=== PATIENT | female | born 1935 | race Two or more races ===

== ENCOUNTER 2016-12-26 14:26 | Emergency (ER) | payer MEDICARE ==
[~2016-12-26] VITALS: Ht 162.6 cm; Wt 46.5 kg
[~2016-12-26 14:26] MED LIST: APIX5TAB PO; LEVO100T4 PO; OCUVTAB PO; TAB-TAB PO
[2016-12-26 14:34] VITALS: BP 146/79; PULSE 78; RESP 15; TEMP 98.2; O2SAT 98
[2016-12-26] MEDS ORDERED: MULT1TAB84 PO (14:38)
[2016-12-26] MEDS ORDERED: LEVO.075 PO (14:38)
[2016-12-26] MEDS ORDERED: AMLO5TAB2 PO (14:38)
[2016-12-26] MEDS ORDERED: COQ-100C2 (14:38)
[2016-12-26 14:50] VITALS: BP_SYST 136; BP_SYST 141; BP_DIAS 58; BP_DIAS 62; RESP 15; O2SAT 98
[2016-12-26] MEDS ORDERED: SODIUM CHLORIDE 0.9% FLUSH 5 ML FLUSH IVF PRN (15:00)
[2016-12-26 15:10] LABS: AUTOMATED NEUTROPHIL # 4.9 TH/MM3 (1.8-7.7); BASOPHIL % 0.3 % (0.0-2.0); EOSINOPHIL % 0.3 % (0.0-4.0); HEMATOCRIT 37.3 % (35.0-46.0); HEMO FLAGS DIFF FINAL; LYMPH % 13.9 % (9.0-44.0); LYMPHOCYTE # 0.9 TH/MM3 (1.0-4.8); MEAN CELL VOLUME 86.9 FL (80.0-100.0); MEAN CORPUSCULAR HEMOGLOBIN 29.5 PG (27.0-34.0); MONO % 12.8 % (0.0-8.0); NEUT % 72.7 % (16.0-70.0); PLATELET COUNT 189 TH/MM3 (150-450); RED BLOOD COUNT 4.29 MIL/MM3 (4.00-5.30); RED CELL DISTRIBUTION WIDTH 13.2 % (11.6-17.2); WHITE BLOOD COUNT 6.6 TH/MM3 (4.0-11.0)
--- NOTE | 2016-12-26 15:22 | PD ---
HPI Chief Complaint: Chest Pain Time Seen by Provider: 14:50 Travel History International Travel<30 days: No Contact w/Intl Traveler<30days: No Traveled to known affect area: No History of Present Illness HPI This is a 81-year-old female who has a history of atrial fibrillation who presents to the emergency department with 2 days of right sided chest pain, intermittent, sharp, worse with laying flat and worse with deep breaths, feeling like a stabbing pain. She says the pain has been constant since last night. She said it was the worst last evening and has subsided but has not gone away completely so she came to the emergency department. She does feel short of breath and she says it really hurts when she takes a deep breath. She denies any associated nausea or diaphoresis although she did have some chills overnight. She did notice that she had a greasy stool yesterday. She follows with Dr. White for her atrial fibrillation. She doesn't a history of hypertension. She denies smoking. PFSH Past Medical History Hx Anticoagulant Therapy: Yes (XARELTO) Arthritis: Yes (HANDS) Asthma: No Atrial Fibrillation: Yes Autoimmune Disease: No Heart Rhythm Problems: Yes (NEW AFIB/RVR) Cancer: No Cardiovascular Problems: Yes (A-FIB) High Cholesterol: Yes Chemotherapy: No Chest Pain: Yes Congestive Heart Failure: No Cerebrovascular Accident: No Diabetes: No Diminished Hearing: No Endocrine: Yes Gastrointestinal Disorders: Yes (CHRONIC CONSTIPATION.) GERD: No Glaucoma: No Genitourinary: Yes Hepatitis: No Hiatal Hernia: No Hypertension: Yes Immune Disorder: No Implanted Vascular Access Dvce: No Musculoskeletal: Yes Neurologic: Yes Psychiatric: No Reproductive: No Respiratory: No Immunizations Current: Yes Renal Failure: No Thyroid Disease: Yes Ulcer: No ?: Not Menopausal: Yes : 1 Para: 2 Past Surgical History Abdominal Surgery: No Appendectomy: Yes Cardiac Surgery: No Ear Surgery: No Endocrine Surgery: Yes Eye Surgery: Yes (LASER) Genitourinary Surgery: Yes (BLADDER) Gynecologic Surgery: Yes (HYSTERECTOMY) Hysterectomy: Yes Oral Surgery: No Pacemaker: No Thoracic Surgery: No Tonsillectomy: Yes Other Surgery: Yes Social History Alcohol Use: Yes (1/2 GLASS WINE EVERY OTHER DAY) Tobacco Use: No Substance Use: No Allergies-Medications (Allergen,Severity, Reaction): Coded Allergies: Hydrochlorothiazide (Verified Allergy, Severe, 12/26/16) Hydrocodone (Verified Allergy, Severe, 12/26/16) Pravastatin (Verified Allergy, Severe, 12/26/16) Cardizem (Verified Allergy, Intermediate, 12/26/16) Xarelto (Verified Allergy, Unknown, 12/26/16) Reported Meds & Prescriptions Reported Meds & Active Scripts Active Reported Coq-10 (Coenzyme Q10 (Ubidecarenone)) 100 Mg Cap Amlodipine (Amlodipine Besylate) 5 Mg Tab 5 Mg PO DAILY Multivitamin Adults (Multiple Vitamins W/ Minerals) 1 Tab 1 Tab PO DAILY Synthroid (Levothyroxine Sodium) 75 Mcg Tab 75 Mcg PO DAILY Eliquis (Apixaban) 5 Mg Tab 5 Mg PO BID Review of Systems Except as stated in HPI: all other systems reviewed are Neg Physical Exam Narrative GENERAL:Well appearing, no acute distress SKIN: Warm and dry. HEAD: Atraumatic. Normocephalic. EYES: Pupils equal and round. No injection or drainage. ENT: Moist mucous membranes NECK: Trachea midline. CARDIOVASCULAR: Regular rate and rhythm. No murmur appreciated. RESPIRATORY: Clear to auscultation. Breath sounds equal bilaterally. GASTROINTESTINAL: Abdomen soft, tender to palpation in the right upper quadrant with no rebound or guarding. MUSCULOSKELETAL: No obvious deformities. NEUROLOGICAL: Awake and alert. No obvious cranial nerve deficits. Moving all extremities. PSYCHIATRIC: Appropriate mood and affect; insight and judgment normal. Data Data Last Documented VS Vital Signs Date Time Temp Pulse Resp B/P Pulse Ox O2 Delivery O2 Flow Rate FiO2 12/26/16 15:47 68 15 136/54 99 Room Air 12/26/16 14:34 98.2 Orders Electrocardiogram (12/26/16 14:50) Complete Blood Count With Diff (12/26/16 14:50) Comprehensive Metabolic Panel (12/26/16 14:50) Prothrombin Time / Inr (Pt) (12/26/16 14:50) Act Partial Throm Time (Ptt) (12/26/16 14:50) Troponin I (12/26/16 14:50) Chest, Single Ap (12/26/16 14:50) Ecg Monitoring (12/26/16 14:50) Bilateral Bp Monitoring (12/26/16 14:50) Iv Access Insert/Monitor (12/26/16 14:50) Oximetry (12/26/16 14:50) Oxygen Administration (12/26/16 14:50) Sodium Chloride 0.9% Flush (Ns Flush) (12/26/16 15:00) Ed Poc Ultrasound (12/26/16 14:50) D-Dimer (12/26/16 15:04) Labs Laboratory Tests Test 12/26/16 15:00 White Blood Count 6.6 TH/MM3 Red Blood Count 4.29 MIL/MM3 Hemoglobin 12.7 GM/DL Hematocrit 37.3 % Mean Corpuscular Volume 86.9 FL Mean Corpuscular Hemoglobin 29.5 PG Mean Corpuscular Hemoglobin 34.0 % Concent Red Cell Distribution Width 13.2 % Platelet Count 189 TH/MM3 Mean Platelet Volume 8.3 FL Neutrophils (%) (Auto) 72.7 % Lymphocytes (%) (Auto) 13.9 % Monocytes (%) (Auto) 12.8 % Eosinophils (%) (Auto) 0.3 % Basophils (%) (Auto) 0.3 % Neutrophils # (Auto) 4.9 TH/MM3 Lymphocytes # (Auto) 0.9 TH/MM3 Monocytes # (Auto) 0.8 TH/MM3 Eosinophils # (Auto) 0.0 TH/MM3 Basophils # (Auto) 0.0 TH/MM3 CBC Comment DIFF FINAL Differential Comment Prothrombin Time 11.2 SEC Prothromb Time International 1.0 RATIO Ratio Activated Partial 30.9 SEC Thromboplast Time D-Dimer Quantitative (PE/DVT) 0.36 MG/L FEU Sodium Level 138 MEQ/L Potassium Level 3.4 MEQ/L Chloride Level 99 MEQ/L Carbon Dioxide Level 29.7 MEQ/L Anion Gap 9 MEQ/L Blood Urea Nitrogen 15 MG/DL Creatinine 0.82 MG/DL Estimat Glomerular Filtration 67 ML/MIN Rate Random Glucose 99 MG/DL Calcium Level 7.9 MG/DL Total Bilirubin 1.0 MG/DL Aspartate Amino Transf 12 U/L (AST/SGOT) Alanine Aminotransferase 17 U/L (ALT/SGPT) Alkaline Phosphatase 66 U/L Troponin I LESS THAN 0.02 NG/ML Total Protein 7.2 GM/DL Albumin 3.5 GM/DL MDM Medical Decision Making Medical Screen Exam Complete: Yes Emergency Medical Condition: Yes Medical Record Reviewed: Yes (Pt had a stress test in may of 2015 which was low risk) Interpretation(s) EKG: Normal sinus rhythm with no ST changes No leukocytosis Electrolytes are reassuring Troponin is normal Chest x-ray: No acute process Differential Diagnosis Acute coronary syndrome, pulmonary embolism, pneumonia, GERD, gastritis, cholelithiasis, cholecystitis Narrative Course This is a 81-year-old female who presents to the emergency department with chest discomfort on the right side of her chest. It seems to be worsened by movement and deep breaths. She is placed on a monitor and an IV was established. EKG is reassuring and nonischemic. Troponin is normal and her pain has been going on for over 8 hours and is constant so I doubt acute coronary syndrome. She also had a negative stress test a year and a half ago. D-dimer is negative so I doubt pulmonary embolism. I performed a bedside ultrasound which demonstrated no gallstones or suspicion for cholecystitis. I suspect the patient's symptoms are secondary to GERD or gastritis. I did offer her admission but I think it's very unlikely that she has a cardiac etiology for her symptoms and I think she is safe for follow-up as an outpatient given her pain is been constant for more than 8 hours. Patient agrees to follow up with her fitness trainer and her primary care physician within the week for possible repeat stress testing. Procedures Procedure Narrative Gallbladder ultrasound: Gallbladder was visualized. Some sludge but no stones visualized in the gallbladder. Gallbladder wall measured 1.8 mm and common bile duct measured 3.0 mm. No sonographic Salas sign. No pericholecystic fluid. Diagnosis Primary Impression: Atypical chest pain Patient Instructions: General Instructions Additional Instructions: If you develop severe chest pain, shortness of breath, sweating, lightheadedness , dizziness or difficulty breathing return to the emergency department immediately. Follow-up with your fitness trainer and your primary care physician within the week. Med/Other Pt SpecificInfo: No Change to Meds Disposition: 01 DISCHARGE HOME Condition: Stable Elaine Stark MD Dec 26, 2016 15:22
[2016-12-26 15:26] LABS: CHLORIDE 99 MEQ/L (98-107); POTASSIUM 3.4 MEQ/L (3.5-5.1); SODIUM (NA) 138 MEQ/L (136-145)
[2016-12-26 15:29] LABS: APTT (PATIENT) 30.9 SEC (24.3-30.1); PROTHROMBIN TIME - PATIENT 11.2 SEC (9.8-11.6)
[2016-12-26 15:30] LABS: ANION GAP 9 MEQ/L (5-15); BICARBONATE 29.7 MEQ/L (21.0-32.0); BLOOD UREA NITROGEN 15 MG/DL (7-18)
[2016-12-26 15:33] LABS: ALT (GPT) 17 U/L (10-53); AST (GOT) 12 U/L (15-37); GLOMERULAR FILTRATION RATE 67 ML/MIN (>89)
[2016-12-26 15:36] LABS: ALKALINE PHOSPHATASE 66 U/L (45-117)
--- NOTE | 2016-12-26 15:43 | RADHPO ---
EXAM DATE/TIME: 12/26/2016 15:26 [facility] COMPARISON: CHEST SINGLE AP, July 30, 2015, 2:34. INDICATIONS : Chest pain for two days. No trauma. MEDICAL HISTORY : A-fib. SURGICAL HISTORY : None. ENCOUNTER: Initial ACUITY: 2 days PAIN SCORE: 7/10 LOCATION: Bilateral upper chest FINDINGS: Cardiomegaly. Clear lungs. Osseous structures are intact. CONCLUSION: No acute disease. Nik Boggs MD on December 26, 2016 at 15:41 Board Certified Radiologist. This report was verified electronically.
[2016-12-26 15:47] VITALS: BP 136/54; PULSE 68; RESP 15; O2SAT 99
--- NOTE | 2016-12-27 14:39 | EKG ---
Date Performed: 12/26/2016 Time Performed: 14:30:40 PTAGE: 81 years EKG: Sinus rhythm Normal ECG Compared to prior tracing no significant change PREVIOUS TRACING : 09/07/2015 18.29 DOCTOR: Davin Arnold Interpretating Date/Time 12/27/2016 14:37:52
== END 2016-12-26 16:17 | disposition home or self-care (01) ==
LOC: PHED 14:26
DX: R07.89 Other chest pain (principal); I48.91 Unspecified atrial fibrillation; E78.00 Pure hypercholesterolemia, unspecified; I10 Essential (primary) hypertension; E07.9 Disorder of thyroid, unspecified; Z79.01 Long term (current) use of anticoagulants
CPT/HCPCS: 71010; 80053; 83690; 84484; 85025; 85379; 85610; 85730; 93005